=== PATIENT | male | born 1980 | race Caucasian/White ===

== ENCOUNTER 2018-11-12 10:16 | Emergency (ER) | payer SELFPAY ==
[~2018-11-12] VITALS: Ht 175.3 cm; Wt 68.0 kg
[~2018-11-12 10:16] MED LIST: Robaxin500 MG PO
[2018-11-12] MEDS ORDERED: Robaxin500 MG PO (11:42)
== END 2018-11-12 11:55 | disposition home or self-care (01) ==
LOC: ER 10:16
DX: M62.411 Contracture of muscle, right shoulder (principal); F17.200 Nicotine dependence, unspecified, uncomplicated
CPT/HCPCS: 99283; J1885